=== PATIENT | female | born 1965 | race American Indian/Alaskan Native ===

== ENCOUNTER 2022-04-07 02:23 | Emergency (ER) | payer OTHER ==
--- NOTE | 2022-04-07 08:28 | Event Note ---
ED Screening Note ED Screening Note: 56-year-old comes to the ER with complaints of nausea vomiting. Tachycardic on triage. She has come to triage for reexam and is nauseated complaining of abdominal pain however she is ambulatory. Labs have been ordered UA ordered. This initial assessment/diagnostic orders/clinical plan/treatment(s) is/are subject to change based on patients health status, clinical progression and re- assessment by fellow clinical providers in the ED. Further treatment and workup at subsequent clinical providers discretion. Patient/guardian urged not to elope from the ED as their condition may be serious if not clinically assessed and managed. Initial orders include: ER for work-up
[2022-04-07] MEDS ORDERED: fentaNYL 100 MCG/2 ML INJ IV ONE (09:26)
[2022-04-07] MEDS ORDERED: ONDANSETRON 4 MG/2 ML INJ IV ONE (09:26)
--- NOTE | 2022-04-07 09:31 | Emergency Department Report ---
HPI - General Chief Complaint: Abdominal Pain Time Seen by Provider: 04/07/22 09:19 - HPI HPI: Room 5 Patient is a 56-year-old female present with chief complaint of right flank pain. Patient states at midnight she developed pain in her right flank in addition to dysuria. Patient states she is uncertain if she has had hematuria but denies nausea/vomiting or fever. Patient currently gives her pain a score of 9/10. ED Past Medical Hx - Past Medical History Previous Medical History?: Yes Hx Hypertension: Yes Hx Psychiatric Treatment: Yes (Depression/anxiety) Hx Asthma: Yes Additional medical history: Hypercholesterolemia, - Surgical History Past Surgical History?: Yes Hx Cholecystectomy: Yes Hx Appendectomy: Yes - Family History Family history: no significant - Social History Smoking Status: Current Every Day Smoker (1 pack/day) Substance Use Type: None (Denies illicit drug use) - Medications Home Medications: Home Medications Medication Instructions Recorded Confirmed Last Taken Type HYDROcodone/APAP 5-325 [Randolph 1 - 2 each PO Q6HR PRN #10 tablet 04/07/22 Unknown Rx 5/325] Phenazopyridine [Pyridium] 200 mg PO TID #6 tab 04/07/22 Unknown Rx levoFLOXacin [Levaquin TAB] 500 mg PO QDAY #7 tablet 04/07/22 Unknown Rx ED Review of Systems ROS: Stated complaint: ABD PAIN Other details as noted in HPI Constitutional: no symptoms reported Eyes: denies: eye pain ENT: denies: throat pain Respiratory: no symptoms reported Cardiovascular: denies: chest pain Endocrine: no symptoms reported Gastrointestinal: abdominal pain. denies: nausea, vomiting Genitourinary: dysuria, hematuria (?) Musculoskeletal: back pain Neurological: denies: headache Physical Exam - Physical Exam Vital Signs: Vital Signs 04/07/22 04/07/22 03:41 09:18 Temperature 98.5 F 98.4 F Pulse Rate 110 H 117 H Respiratory 20 20 Rate Blood Pressure 134/89 Blood Pressure 138/89 134/89 [Right] O2 Sat by Pulse 98 98 Oximetry Physical Exam: GENERAL: The patient is well-developed well-nourished female lying on stretcher not appearing to be in acute distress. [] HEENT: Normocephalic. Atraumatic. Extraocular motions are intact. Patient has moist mucous membranes. NECK: Supple. Trachea midline CHEST/LUNGS: Clear to auscultation. There is no respiratory distress noted. HEART/CARDIOVASCULAR: Regular. There is no tachycardia. There is no gallop rub or murmur. ABDOMEN: Abdomen is soft, nontender. Patient has normal bowel sounds. There is no abdominal distention. SKIN: There is no rash. There is no edema. There is no diaphoresis. NEURO: The patient is awake, alert, and oriented. The patient is cooperative. The patient has no focal neurologic deficits. The patient has normal speech. GCS 15 MUSCULOSKELETAL: There is no evidence of acute injury. ED Course Vital Signs 04/07/22 04/07/22 03:41 09:18 Temperature 98.5 F 98.4 F Pulse Rate 110 H 117 H Respiratory 20 20 Rate Blood Pressure 134/89 Blood Pressure 138/89 134/89 [Right] O2 Sat by Pulse 98 98 Oximetry ED Medical Decision Making - Lab Data Result diagrams: 04/07/22 08:48 04/07/22 08:48 Laboratory Tests 04/07/22 04/07/22 04/07/22 08:48 08:48 10:13 WBC 13.0 H RBC 4.57 Hgb 13.9 Hct 42.7 MCV 93 MCH 31 MCHC 33 RDW 14.9 Plt Count 306 Sodium 143 Potassium 3.8 Chloride 110.8 H Carbon Dioxide 20 L Anion Gap 16 BUN 19 H Creatinine 1.4 H Estimated GFR 39 BUN/Creatinine Ratio 14 Glucose 113 H Calcium 10.7 H Total Bilirubin 0.40 AST 17 ALT 22 Alkaline Phosphatase 138 H Total Protein 7.7 Albumin 4.8 Albumin/Globulin Ratio 1.7 Lipase 33 Urine Color Yellow Urine Turbidity Clear Urine pH 6.0 Ur Specific [place] 1.015 Urine Protein 100 mg/dl Urine Glucose (UA) Negative Urine Ketones Negative Urine Blood Negative Urine Nitrite Negative Ur Reducing Substances Not Reportable Urine Bilirubin Negative Urine Ictotest Not Reportable Urine Urobilinogen < 2.0 Ur Leukocyte Esterase Trace Urine WBC (Auto) 3.0 Urine RBC (Auto) 3.0 U Epithel Cells (Auto) 10.0 Urine Mucus Few - Radiology Data Radiology results: report reviewed (CT abdomen pelvis), image reviewed (CT abdomen pelvis) [facility] [address] [place] [address] Cat Scan Report Signed Patient: JADEN OLIVARES MR#: [id number] : 1965 Acct:[id number] Age/Sex: 56 / F ADM Date: 04/07/22 Loc: ED Attending Dr: Ordering Physician: PHIL DE JESUS MD Date of Service: 04/07/22 Procedure(s): CT abdomen pelvis wo con Accession Number(s): [id number] cc: PHIL DE JESUS MD CT ABDOMEN AND PELVIS WITHOUT CONTRAST HISTORY: Right flank pain PELVIC PAIN painful urination COMPARISON: None TECHNIQUE: Routine abdominal and pelvic CT exam performed without contrast. Lack of intravenous contrast limits evaluation of the vascular and solid organs.. All CT scans at this location are performed using CT dose reduction for ALARA by means of automated exposure control. FINDINGS: CT ABDOMEN: Lung Bases: No significant abnormality. Liver: No significant abnormality. Biliary: Gallbladder is surgically absent. Spleen: No significant abnormality. Unenlarged. Pancreas: No significant abnormality. Adrenals: No significant abnormality. 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 Right kidney appears normal. Lymphatics: No lymphadenopathy. Vasculature: Atherosclerotic but nonaneurysmal abdominal aorta. Bowel/Peritoneum: No significant abnormality. No free air. No free fluid. CT PELVIC: : No significant abnormality. Lymphatics: No lymphadenopathy. Osseous Structures: No aggressive appearing osseous lesions. Additional Findings: None IMPRESSION: 1. No definite findings to explain the patient's symptoms. Signer Name: Garry Sharpe MD Signed: 04/07/2022 10:05 AM Workstation Name: [id number] Transcribed By: RAMIRO Dictated By: Garry Sharpe MD Electronically Authenticated By: Garry Sharpe MD Signed Date/Time: 04/07/22 1005 DD/ 1000 TD/TT: - Differential Diagnosis Pyelonephritis, renal colic Critical care attestation.: If time is entered above; I have spent that time in minutes in the direct care of this critically ill patient, excluding procedure time. ED Disposition Clinical Impression: Right flank pain, Dysuria Disposition: 01 HOME / SELF CARE / HOMELESS Is pt being admited?: No Does the pt Need Aspirin: No Condition: Stable Instructions: Abdominal Pain (ED), Flank Pain, Adult, Dysuria Additional Instructions: Return to the emergency department should you develop worsening symptoms, inability to tolerate food or liquids, high fever or any other concerns Prescriptions: levoFLOXacin [Levaquin TAB] 500 mg PO QDAY #7 tablet HYDROcodone/APAP 5-325 [Randolph 5/325] 1 - 2 each PO Q6HR PRN #10 tablet PRN Reason: Pain Phenazopyridine [Pyridium] 200 mg PO TID #6 tab Referrals: PRIMARY CARE, [Primary Care Provider] - 3-5 Days Time of Disposition: 11:22
[2022-04-07 09:59] LABS: Hematocrit 42.7 % (30.3-42.9); Hemoglobin 13.9 gm/dl (10.1-14.3); Mean Corpuscular HGB Conc 33 % (30-34); Mean Corpuscular Volume 93 fl (79-97); Platelet Count 306 K/mm3 (140-440); Red Blood Count 4.57 M/mm3 (3.65-5.03); Red Cell Distribution Width 14.9 % (13.2-15.2)
--- NOTE | 2022-04-07 10:10 | Cat Scan Report ---
CT ABDOMEN AND PELVIS WITHOUT CONTRAST HISTORY: Right flank pain PELVIC PAIN painful urination COMPARISON: None TECHNIQUE: Routine abdominal and pelvic CT exam performed without contrast. Lack of intravenous cont rast limits evaluation of the vascular and solid organs.. All CT scans at this location are performed using CT dose reduction for ALARA by means of automated exposure control. FINDINGS: CT ABDOMEN: Lung Bases: No significant abnormality. Liver: No significant abnormality. Biliary: Gallbladder is surgically absent. Spleen: No significant abnormality. Unenlarged. Pancreas: No significant abnormality. Adrenals: No significant abnormality. 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 Right kidney appears normal. Lymphatics: No lymphadenopathy. Vasculature: Atherosclerotic but nonaneurysmal abdominal aorta. Bowel/Peritoneum: No significant abnormality. No free air. No free fluid. CT PELVIC: : No significant abnormality. Lymphatics: No lymphadenopathy. Osseous Structures: No aggressive appearing osseous lesions. Additional Findings: None IMPRESSION: 1. No definite findings to explain the patient's symptoms. Signer Name: Garry Sharpe MD Signed: 04/07/2022 10:05 AM Workstation Name: [email or web address]
[2022-04-07] MEDS ORDERED: HYDROmorphone 1 MG/1 ML INJ IV ONE (10:21)
[2022-04-07 10:23] LABS: Albumin 4.8 g/dL (3.9-5); Calcium 10.7 mg/dL (8.4-10.2)
[2022-04-07 10:39] LABS: Mucus,Urine FEW /HPF
[2022-04-07 10:46] LABS: Color,Urine Yellow (Yellow)
[2022-04-07 10:47] LABS: Bilirubin,Urine Negative (Negative); Blood,Urine Negative (Negative); Urobilinogen,Urine < 2.0 mg/dL (<2.0)
[2022-04-07 12:02] VITALS: BP 110/70
== END 2022-04-07 12:00 | disposition home or self-care (01) ==
LOC: ED 02:23
DX: R10.31 Right lower quadrant pain (principal); R30.0 Dysuria; I10 Essential (primary) hypertension; F41.9 Anxiety disorder, unspecified; F32.9 Major depressive disorder, single episode, unspecified; J45.909 Unspecified asthma, uncomplicated; E78.00 Pure hypercholesterolemia, unspecified; Z90.89 Acquired absence of other organs; Z98.890 Other specified postprocedural states; F17.290 Nicotine dependence, other tobacco product, uncomplicated
CPT/HCPCS: 36415; 74176; 80053; 81001; 83690; 85027; 96374; 96375; 99284; J1170; J2405; J3010